=== PATIENT | male | born 1985 | race African-American/Black ===

== ENCOUNTER 2018-04-01 00:03 | Emergency (ER) | payer OTHER ==
[2018-04-01 00:08] VITALS: BP 137/94; PULSE 62; RESP 18; TEMP 98.3
== END 2018-04-01 01:01 ==
LOC: EC 00:03

== ENCOUNTER → 2023-10-29 | Outpatient (CLI) | payer OTHER ==
--- NOTE | 2023-10-30 10:27 | XR ---
EXAMINATION TYPE: XR chest 2V DATE OF EXAM: 10/29/2023 COMPARISON: None HISTORY: 38-year-old male R06.02, shortness of breath TECHNIQUE: Frontal and lateral views FINDINGS: Heart upper limits of normal in size. 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 No christine consolidation or pleural effusion. IMPRESSION: Hypoventilatory changes. No definite acute process.
== END | disposition home or self-care (01) ==
LOC: RADXRMAIN 16:43
PROVIDERS: ATTEND Internal Medicine
DX: R06.02 Shortness of breath (principal)
CPT/HCPCS: 71046

== ENCOUNTER → 2023-11-01 | Outpatient (CLI) | payer OTHER | END | disposition home or self-care (01) | LOC: LABWHC1 15:33 | PROVIDERS: ATTEND Internal Medicine | DX: Z53.9 Procedure and treatment not carried out, unspecified reason (principal) ==

== ENCOUNTER → 2023-11-04 | Outpatient (CLI) | payer OTHER ==
[2023-11-04 18:26] LABS: Reticulocyte % 1.28 % (0.10-1.80)
[2023-11-04 19:29] LABS: ALT 27 U/L (10-49); AST 26 U/L (14-35); Albumin 4.5 g/dL (3.8-4.9); Albumin/Globulin Ratio 2.25 Ratio (1.60-3.17); Alkaline Phosphatase 123 U/L (41-126); BUN/Creat Ratio 10.33 Ratio (12.00-20.00); Blood Urea Nitrogen 9.3 mg/dL (9.0-27.0); Calcium 9.2 mg/dL (8.7-10.3); Carbon Dioxide 26.4 mmol/L (21.6-31.8); Chloride 105 mmol/L (96-109); Chol/HDL Ratio 2.26 Ratio; Ferritin 5.2 ng/mL (22.0-322.0); Glucose 94 mg/dL (70-110); Iron 16 UG/DL (65-175); LDL Cholesterol,Calculated 22.5 mg/dL (0.0-131.0); Potassium 3.9 mmol/L (3.5-5.5); Sodium 142 mmol/L (135-145); Total Bilirubin 0.8 mg/dL (0.3-1.2); Total Iron Binding Capacity 552 UG/DL (228-460); Total Protein 6.5 g/dL (6.2-8.2); VLDL Calculation 13.66 mg/dL (5.00-40.00)
[2023-11-04 19:43] LABS: Basophils # (A) 0.04 X 10*3/uL (0.00-0.10); Basophils % (A) 0.5 %; Elliptocytes 2+; Eosinophils % (A) 5.8 %; HCT 36.1 % (39.6-50.0); HGB 9.5 g/dL (13.0-17.0); Hypochromasia (M) 2+; Lymphocytes # (A) 0.77 X 10*3/uL (0.90-5.00); Lymphocytes % (A) 8.9 %; MCH 15.2 pg (27.0-32.0); MCHC 26.3 g/dL (32.0-37.0); MCV 57.6 FL (80.0-97.0); Microcytosis (M) 2+; Monocytes % (A) 17.4 %; NRBC Per 100 WBC 0.02 X 10*3/uL (0.00-0.01); Neutrophils # (A) 5.78 X 10*3/uL (1.80-7.70); Neutrophils % (A) 67.2 %; Platelet Count 246 X 10*3/uL (140-440); RBC 6.27 X 10*6/uL (4.40-5.60); RDW 19.2 % (11.5-14.5); Schistocytes 1+; WBC 8.61 X 10*3/uL (4.50-10.00)
== END | disposition home or self-care (01) ==
LOC: LABWHC1 15:21
PROVIDERS: ATTEND Internal Medicine
DX: I10 Essential (primary) hypertension (principal); E78.2 Mixed hyperlipidemia; E55.9 Vitamin D deficiency, unspecified; D50.0 Iron deficiency anemia secondary to blood loss (chronic); D57.3 Sickle-cell trait; R73.03 Prediabetes
CPT/HCPCS: 36415; 80053; 80061; 82306; 82607; 82728; 82746; 83036; 83540; 83550; 83735; 84443; 85025; 85045